=== PATIENT | male | born 1950 | race Caucasian/White ===

== ENCOUNTER 2018-04-04 09:07 | Day surgery (SDC) | payer BC ==
[~2018-04-04] VITALS: Ht 182.9 cm; Wt 85.3 kg
[2018-04-04] MEDS ORDERED: Omeprazole20 M1 (09:23)
[2018-04-04] MEDS ORDERED: (None)50 MG (09:25)
== END 2018-04-04 11:16 | disposition home or self-care (01) ==
LOC: ORSCSDS 09:07
PROVIDERS: Internal Medicine Gastroenterology
PROC: 0DBL8ZX Excision of Transverse Colon, Via Natural or Artificial Opening Endoscopic, Diagnostic (ICD-10-PCS; principal; 2018-04-04 10:15)
PROC: 0DBM8ZX Excision of Descending Colon, Via Natural or Artificial Opening Endoscopic, Diagnostic (ICD-10-PCS; principal; 2018-04-04 10:15)
DX: Z12.11 Encounter for screening for malignant neoplasm of colon (principal); D12.3 Benign neoplasm of transverse colon; K63.5 Polyp of colon; K64.8 Other hemorrhoids; K21.9 Gastro-esophageal reflux disease without esophagitis; K22.0 Achalasia of cardia; Z79.899 Other long term (current) drug therapy

== ENCOUNTER 2020-08-07 20:20 | Emergency (ER) | payer BC ==
[~2020-08-07] VITALS: Ht 182.9 cm; Wt 93.0 kg
[~2020-08-07 20:20] MED LIST: (None)50 MG; Omeprazole20 M1
[2020-08-07 20:50] LABS: BASOPHILS ABSOLUTE AUTO 0.02 K/mm3 (0.00-0.23); BASOPHILS PERCENT AUTO 0 % (0-2); EOSINOPHILS ABSOLUTE AUTO 0.07 K/mm3 (0.00-0.68); EOSINOPHILS PERCENT AUTO 1 % (0-6); Hematocrit 44.8 % (37.0-53.0); Hemoglobin 14.7 g/dL (13.5-17.5); IMMATURE GRAN ABSOLUTE AUTO 0.01 K/mm3 (0.00-0.10); IMMATURE GRAN PERCENT AUTO 0 % (0-1); LYMPHOCYTES ABSOLUTE AUTO 1.23 K/mm3 (0.84-5.20); LYMPHOCYTES PERCENT AUTO 22 % (21-46); MONOCYTES ABSOLUTE AUTO 0.39 K/mm3 (0.16-1.47); MONOCYTES PERCENT AUTO 7 % (4-13); Mean Corpuscular HGB 27.2 pg (26.0-34.0); Mean Corpuscular HGB Conc 32.8 g/dL (31.5-36.5); Mean Corpuscular Volume 83 fL (80-100); Mean Platelet Volume 11.3 fL (9.1-12.4); NEUTROPHILS ABSOLUTE AUTO 3.85 K/mm3 (1.96-9.15); NEUTROPHILS PERCENT AUTO 69 % (41-73); Platelet Count 223 K/mm3 (150-400); RDW Coefficient Variation 13.9 % (11.7-14.2); RDW Standard Deviation 41.9 fL (35.1-46.3); Red Blood Cell Count 5.41 M/mm3 (4.30-5.90); White Blood Cell Count 5.57 K/mm3 (4.00-11.30)
[2020-08-07 21:10] LABS: Alanine Aminotransfer (ALT/SGP 18 U/L (12-78); Albumin, Blood 3.8 g/dL (3.4-5.0); Albumin/Globulin Ratio 1.2 (0.8-1.8); Alk Phos 79 U/L (50-136); Anion Gap 5 mmol/L (6-16); Aspartate Aminotrans (AST/SGOT 12 U/L (12-37); Bilirubin, Total 0.6 mg/dL (0.1-1.0); Blood Urea Nitrogen 16 mg/dL (8-24); Bun/Creatinine Ratio 16.5 (12.0-20.0); CO2, Blood 24 mmol/L (21-32); Calcium, Blood 9.2 mg/dL (8.5-10.1); Chloride, Blood 110 mmol/L (98-108); Creatinine, Blood 0.97 mg/dL (0.60-1.20); Globulin, Blood 3.2 g/dL (2.2-4.0); Glomerular Filtration Rate >60 (60-); Glucose, Blood 91 mg/dL (70-99); Potassium, Blood 3.9 mmol/L (3.5-5.5); Sodium, Blood 139 mmol/L (136-145); Troponin I <0.015 ng/mL (0.000-0.040)
== END 2020-08-07 23:13 | disposition home or self-care (01) ==
LOC: ER 20:20
PROVIDERS: Physician Assistant
DX: F41.9 Anxiety disorder, unspecified (principal)
CPT/HCPCS: 36415; 71046; 80053; 83880; 84484; 85025; 93005; 93010; 99284-25

== ENCOUNTER 2020-09-02 06:39 | Day surgery (SDC) | payer BC ==
[~2020-09-02] VITALS: Ht 177.8 cm; Wt 94.0 kg
[~2020-09-02 06:39] MED LIST changes: +Aspir 8181 MG PO; +TAMS.4ER PO
[2020-09-02] MEDS ORDERED: ATOR20 PO (07:02)
[2020-09-02] MEDS ORDERED: AMLO5 PO (11:27)
[2020-09-02] MEDS ORDERED: NITR.4SL SL (11:28)
--- NOTE | 2020-09-02 14:45 | NUR ---
DISCHARGE PT REMAIND A&OX3 AND DENIED ANY QUESTIONS WHILE IN RECOVERY. RIGHT RADIAL SITE TR BAND REMOVED-CLOTH DOT AND WHITE BOARD IN PLACE, ALONG WITH ARM SLING.-CDI NO HEMATOMA NOTED. IV DC'D WITH CANULA IN TACT. PRESCRIPTIONS CALLED INTO [facility]. PT ABLE TO DRESS SELF WITH LITTLE ASSISTANCE FROM SPOUSE. PT AMUBLATED TO RESTROOM INDEPENDANLY WITH STEADY GAIT. DISCHARGE PAPERWORK GONE OVER WITH PATIENT. PATIENT VERBALLY STATED THE UNDERSTANDING OF THE DISCHARGE EDUCATION AND DENIED ANY QUESTIONS AT THIS TIME. PT WHEELED OUT WITH BELONGINGS BY THIS NURSE.
== END 2020-09-02 12:00 | disposition home or self-care (01) ==
LOC: MHTC 06:39
PROC: 4A023N7 Measurement of Cardiac Sampling and Pressure, Left Heart, Percutaneous Approach (ICD-10-PCS; principal; 2020-09-02)
PROC: B2111ZZ Fluoroscopy of Multiple Coronary Arteries using Low Osmolar Contrast (ICD-10-PCS; principal; 2020-09-02)
DX: I25.119 Atherosclerotic heart disease of native coronary artery with unspecified angina pectoris (principal); R94.39 Abnormal result of other cardiovascular function study; R06.00 Dyspnea, unspecified; R00.1 Bradycardia, unspecified; R00.2 Palpitations; I08.3 Combined rheumatic disorders of mitral, aortic and tricuspid valves; K21.9 Gastro-esophageal reflux disease without esophagitis; I10 Essential (primary) hypertension; E78.5 Hyperlipidemia, unspecified; K22.0 Achalasia of cardia; N40.0 Benign prostatic hyperplasia without lower urinary tract symptoms; E66.9 Obesity, unspecified; Z68.28 Body mass index [BMI] 28.0-28.9, adult; Z79.82 Long term (current) use of aspirin; Z79.899 Other long term (current) drug therapy
CPT/HCPCS: 76937; 85347; 99152; 99153; C1769; C1894; J1644; J2250; J3010; J7030; J7050; Q9967

== ENCOUNTER → 2021-03-28 | Outpatient (CLI) | payer MEDICARE, BC ==
[~2021-03-28] MED LIST changes: +AMLO5 PO; +ATOR20 PO; +NITR.4SL SL
== END ==
LOC: LAB SHORT 11:30 → LAB 11:30
DX: N41.0 Acute prostatitis (principal)
CPT/HCPCS: 87086

== ENCOUNTER → 2022-02-13 | Outpatient (CLI) | payer MEDICARE, BC | END | disposition home or self-care (01) | LOC: LAB 10:45 → LAB SHORT 10:45 | DX: R30.9 Painful micturition, unspecified (principal) | CPT/HCPCS: 87086 ==

== ENCOUNTER 2024-11-21 13:41 | Day surgery (SDC) | payer OTHER ==
[~2024-11-21] VITALS: Ht 182.9 cm; Wt 213.6 kg
[~2024-11-21 13:41] MED LIST changes: +DUTASTERIDE0.5 M3 PO; +Lactated Ringer's 1,000 ML IV ONE; +Lidocaine 2% 5 ML SDV ONE; +Lidocaine HCl/Pf 1% 5 ML VIAL ONE; +METOPROLOL SUCC25 MG PO; +propofoL 50 ML IV ONE
[2024-11-21] MEDS ORDERED: XARELTO20 MG (13:57)
[2024-11-21] MEDS ORDERED: Lactated Ringer's 1,000 ML IV ONE (14:41)
[2024-11-21] MEDS ORDERED: propofoL 50 ML IV ONE (14:52)
--- NOTE | 2024-11-21 16:15 | NUR ---
11/21/24 1615 Medina Belcher PT. STARTED SHIVERING, PT. GETTING READY TO GO HOME. PT. GETTING DRESSED.
[2024-11-21 16:16] VITALS: BP 133/78
== END 2024-11-21 16:07 | disposition home or self-care (01) ==
LOC: ORSCSDS 13:41
DX: Z12.11 Encounter for screening for malignant neoplasm of colon (principal); D12.2 Benign neoplasm of ascending colon; K63.5 Polyp of colon; Z86.0100 Personal history of colon polyps, unspecified; K22.0 Achalasia of cardia; R13.19 Other dysphagia; G47.33 Obstructive sleep apnea (adult) (pediatric); I48.91 Unspecified atrial fibrillation; I25.10 Atherosclerotic heart disease of native coronary artery without angina pectoris; Z95.1 Presence of aortocoronary bypass graft; N40.0 Benign prostatic hyperplasia without lower urinary tract symptoms; K21.9 Gastro-esophageal reflux disease without esophagitis; E78.5 Hyperlipidemia, unspecified; I11.0 Hypertensive heart disease with heart failure; Z79.82 Long term (current) use of aspirin; Z79.01 Long term (current) use of anticoagulants; Z79.899 Other long term (current) drug therapy
CPT/HCPCS: 88305; J2003; J2704; J7120